=== PATIENT | male | born 1980 | race Caucasian/White ===

== ENCOUNTER 2021-11-13 16:41 | Emergency (ER) | payer MEDICAID ==
[~2021-11-13] VITALS: Ht 190.5 cm; Wt 108.9 kg
[~2021-11-13 16:41] MED LIST: DOXYCYCLINE HY100 MG PO; IBUPROFEN200 M1 PO; PROPRANOLOL HCL20 MG PO; TYLENOL325 M1 PO
--- OUTSIDE RECORDS SUMMARY | 2021-11-13 16:48 | XMS ---
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 No recent Security Events currently on file CRITERIA MET - [facility] - 2 Visits in 30 Days - 6 ED Visits in 6 Months - [facility] - Has Care Guidelines CARE PROVIDERS Stephanie Global Clinical Leader/Child Life Assistant [facility] PHONE: [phone] Axel Lugo Global Clinical Leader/Child Life Assistant 09/30/2018-Current PHONE: [phone] SALOME [facility] Current PHONE: Unknown JARRETT BURROWSNVJas [facility] PHONE: [phone] Guidelines Source: [facility] Guidelines Date: 10/28/2021 Care Coordination: This client has been assigned to Care Coordination for [facility]. The assigned career services manager is Brissa Hector. Please call at [phone], thanks! [place] VISIT COUNT (12 MO.) [address] [place] . TOTAL 7 NOTE: Visits indicate total known visits. ED/UCC VISIT TRACKING (12 MO.) 11/13/2021 16:42 [facility] TYPE: Emergency COMPLAINT: - LT LEG SWELLING 10/20/2021 09:37 [facility] TYPE: Emergency COMPLAINT: - L FOOT WOUND DIAGNOSES: - Allergy status to other drugs, medicaments and biological substances - Non-pressure chronic ulcer of other part of left lower leg limited to breakdown of skin - Other skilled nursing (current) drug therapy 08/23/2021 07:36 [facility] TYPE: Emergency DIAGNOSES: - Other stimulant abuse, uncomplicated - Cellulitis and abscess of mouth - Dental Abscess - Mouth Pain - Periapical abscess without sinus 08/20/2021 06:31 [facility] TYPE: Emergency DIAGNOSES: - Cellulitis and abscess of mouth - Dental Pain - Elevated blood-pressure reading, without diagnosis of hypertension - Other lesions of oral mucosa - Homelessness unspecified 08/07/2021 13:18 [facility] Medical TYPE: Emergency DIAGNOSES: - Wound Check - Acquired absence of left leg below knee - Cellulitis, unspecified - Homelessness unspecified - Non-pressure chronic ulcer of unspecified part of left lower leg with fat layer exposed - L Leg Pain - Type 2 diabetes mellitus with other skin ulcer 07/21/2021 23:10 [facility] Medical TYPE: Emergency DIAGNOSES: - Cellulitis of left lower limb - Left leg pain - Leg Pain - Cellulitis, unspecified - Complete traumatic amputation of left foot, level unspecified, subsequent encounter - Leg Wound 01/21/2021 16:10 [facility] Medical TYPE: Emergency DIAGNOSES: - Skin Redness With Swelling - Cellulitis of left lower limb - Wound Check; Leg Swelling/Pain INPATIENT VISIT TRACKING (12 MO.) No inpatient visits to display in this time frame [id number]
[2021-11-13] MEDS ORDERED: SUBOXONE 8 MG-1 EAC1 SL (19:10)
[2021-11-14] MEDS ORDERED: AMOX TR-K CLV1 EAC1 PO (07:50)
[2021-11-14] MEDS ORDERED: BACTRIM DS TAB1 EACH PO (07:50)
--- NOTE | 2021-11-14 17:24 | EKG ---
[facility] [address] [facility] [address] [facility] [place] [address] Signed Normal sinus rhythm Rightward axis Nonspecific T wave abnormality Abnormal ECG No previous ECGs available Confirmed by DALLAS DENG MD ([id number] on 11/14/2021 5:23:57 PM Electronically Signed By: DALLAS DENG MD 11/14/21 1724 PATIENT NAME: KARMA ARROYO Electrocardiogram DATE OF : 80 PHYSICIAN: DALLAS DENG MD REPORT #: [id number] REPORT IS CONFIDENTIAL AND NOT TO BE RELEASED WITHOUT AUTHORIZATION
== END 2021-11-14 08:24 | disposition home or self-care (01) ==
LOC: ED 16:41
DX: S81.802A Unspecified open wound, left lower leg, initial encounter (principal); R79.89 Other specified abnormal findings of blood chemistry; E11.65 Type 2 diabetes mellitus with hyperglycemia; Z89.511 Acquired absence of right leg below knee; Z88.8 Allergy status to other drugs, medicaments and biological substances; Z79.899 Other long term (current) drug therapy; Z20.822 Contact with and (suspected) exposure to COVID-19; X58.XXXA Exposure to other specified factors, initial encounter
CPT/HCPCS: 36415; 71260; 73590; 73700; 73702; 80053; 85025; 85379; 85651; 86140; 87502; 93005; 93010; 93971; C9803; J2543; J3370; J7060; Q9967; U0003

== ENCOUNTER 2021-11-16 08:46 | Emergency (ER) | payer MEDICAID ==
[~2021-11-16] VITALS: Ht 190.5 cm; Wt 108.9 kg
[~2021-11-16 08:46] MED LIST changes: +AMOX TR-K CLV1 EAC1 PO; +BACTRIM DS TAB1 EACH PO; +SUBOXONE 8 MG-1 EAC1 SL
--- OUTSIDE RECORDS SUMMARY | 2021-11-16 08:54 | XMS ---
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 recent Security Events currently on file CRITERIA MET - [facility] - Has Care Guidelines - [facility] - 2 Visits in 30 Days - 6 ED Visits in 6 Months CARE PROVIDERS Stephanie Marketing Team Lead/Crystallography Teacher [facility] PHONE: [phone] Axel Lugo Marketing Team Lead/Crystallography Teacher 09/30/2018-Current PHONE: [phone] SALOME [facility] Current PHONE: Unknown JARRETT BURROWSNDJas [facility] PHONE: [phone] Guidelines Source: [facility] Guidelines Date: 10/28/2021 Care Coordination: This client has been assigned to Care Coordination for [facility]. The assigned floor care specialist is Brissa Hector. Please call at [phone], thanks! [place] VISIT COUNT (12 MO.) [address] [place] . TOTAL 8 NOTE: Visits indicate total known visits. ED/UCC VISIT TRACKING (12 MO.) 11/16/2021 08:47 [facility] TYPE: Emergency COMPLAINT: - LT ANKLE PAIN 11/13/2021 16:42 [facility] TYPE: Emergency COMPLAINT: - LT LEG SWELLING/ NO INJ DIAGNOSES: - Other specified abnormal findings of blood chemistry - Other specified soft tissue disorders - Contact with and (suspected) exposure to COVID-19 - Type 2 diabetes mellitus with hyperglycemia - Acquired absence of right leg below knee - Other long term care phlebotomist (current) drug therapy - Allergy status to other drugs, medicaments and biological substances - Unspecified open wound, left lower leg, initial encounter - Exposure to other specified factors, initial encounter 10/20/2021 09:37 [facility] TYPE: Emergency COMPLAINT: - L FOOT WOUND DIAGNOSES: - Allergy status to other drugs, medicaments and biological substances - Non-pressure chronic ulcer of other part of left lower leg limited to breakdown of skin - Other correction (current) drug therapy 08/23/2021 07:36 [facility] TYPE: Emergency DIAGNOSES: - Other stimulant abuse, uncomplicated - Cellulitis and abscess of mouth - Dental Abscess - Mouth Pain - Periapical abscess without sinus 08/20/2021 06:31 [facility] Medical TYPE: Emergency DIAGNOSES: - Cellulitis and abscess of mouth - Dental Pain - Elevated blood-pressure reading, without diagnosis of hypertension - Other lesions of oral mucosa - Homelessness unspecified 08/07/2021 13:18 [facility] Medical TYPE: Emergency DIAGNOSES: - Wound Check - Acquired absence of left leg below knee - Cellulitis, unspecified - Homelessness unspecified - Non-pressure chronic ulcer of unspecified part of left lower leg with fat layer exposed - L Leg Pain - Type 2 diabetes mellitus with other skin ulcer 07/21/2021 23:10 [facility] Medical TYPE: Emergency DIAGNOSES: - Cellulitis of left lower limb - Left leg pain - Leg Pain - Cellulitis, unspecified - Complete traumatic amputation of left foot, level unspecified, subsequent encounter - Leg Wound 01/21/2021 16:10 [facility] DIAGNOSES: - Skin Redness With Swelling - Cellulitis of left lower limb - Wound Check; Leg Swelling/Pain INPATIENT VISIT TRACKING (12 MO.) No inpatient visits to display in this time frame [email or web address]
== END 2021-11-16 14:10 | disposition home or self-care (01) ==
LOC: ED 08:46
DX: S80.812A Abrasion, left lower leg, initial encounter (principal); L08.89 Other specified local infections of the skin and subcutaneous tissue; E11.42 Type 2 diabetes mellitus with diabetic polyneuropathy; Z88.8 Allergy status to other drugs, medicaments and biological substances; X58.XXXA Exposure to other specified factors, initial encounter; Z89.511 Acquired absence of right leg below knee
CPT/HCPCS: 36415; 80048; 85025; 85060; 86140; 99283